=== PATIENT | male | born 1975 | race Caucasian/White ===

== ENCOUNTER 2019-01-05 16:28 | Emergency (ER) | payer OTHER ==
[~2019-01-05] VITALS: Ht 175.3 cm; Wt 56.2 kg
[2019-01-05 17:00] VITALS: BP 117/64
--- NOTE | 2019-01-05 17:03 | NUR ---
PT TO LOBBY
--- NOTE | 2019-01-05 17:40 | NUR ---
PT AMBULATED TO BED 10
--- NOTE | 2019-01-05 17:40 | NUR ---
C/O LEFT EYE REDNESS, SAND PAPER TYPE PAIN, INCREASED TEARS X 3 DAYS DENIES DIRECT INJURY POSSIBLE FB----NO RUPTURE OR HYPHEMA NOTED
[2019-01-05] MEDS ORDERED: FLUORESCEIN OPTH STRIP 0.6 MG OP ONE (18:35)
[2019-01-05] MEDS ORDERED: TETRACAINE HCL/PF 0.5% OPTH 4 ML BTL OP ONE (18:35)
[2019-01-05] MEDS ORDERED: FLUORESCEIN OPTH STRIP 0.6 MG ONE (18:46)
[2019-01-05] MEDS ORDERED: TETRACAINE HCL/PF 0.5% OPTH 4 ML BTL ONE (18:47)
--- NOTE | 2019-01-05 18:50 | NUR ---
NAHID CAMPOS COMPLETED EXAM WITH UYAN
--- NOTE | 2019-01-05 19:10 | NUR ---
Patient discharged with v/s stable. Written and verbal after care instructions given and explained. Patient alert, oriented and verbalized understanding of instructions. Ambulatory with steady gait. All questions addressed prior to discharge. ID band removed. Patient advised to follow up with PMD. Rx of erythromycin ointment/ ibuprofen given. Patient educated on indication of medication including possible reaction and side effects. Opportunity to ask questions provided and answered.
[2019-01-05 19:11] VITALS: BP 133/78
== END 2019-01-05 19:10 | disposition home or self-care (01) ==
LOC: MED 16:28
DX: T15.02XA Foreign body in cornea, left eye, initial encounter (principal); X58.XXXA Exposure to other specified factors, initial encounter; Y93.9 Activity, unspecified; Y92.89 Other specified places as the place of occurrence of the external cause; Y99.8 Other external cause status
CPT/HCPCS: 65222; 99284